=== PATIENT | female | born 1990 | race Caucasian/White ===

== ENCOUNTER 2017-11-28 00:51 | Emergency (ER) | payer MEDICAID ==
[~2017-11-28] VITALS: Ht 167.6 cm; Wt 61.0 kg
[2017-11-28] MEDS ORDERED: LORAZEPAM 1MG TABLET PO ONE (01:15)
[2017-11-28 01:25] VITALS: BP 141/78
== END 2017-11-28 02:45 | disposition home or self-care (01) ==
LOC: ER 00:51
DX: F41.9 Anxiety disorder, unspecified (principal); F43.21 Adjustment disorder with depressed mood; M32.9 Systemic lupus erythematosus, unspecified
CPT/HCPCS: 99282; 99284